=== PATIENT | male | born 1960 | race Caucasian/White ===

== ENCOUNTER → 2021-07-30 | Day surgery (SDC) | payer OTHER ==
[~2021-07-30] VITALS: Ht 182.9 cm; Wt 104.3 kg
[~2021-07-30] MED LIST: ASPIRIN EC81 MG PO; CRESTOR10 MG PO; DAILY VALUE1 EACH PO; PRINIVIL10 MG PO
== END | disposition home or self-care (01) ==
LOC: FAS 10:36
DX: M75.01 Adhesive capsulitis of right shoulder (principal)
CPT/HCPCS: 97162; 97530-GP; J0735; J1040; J1100; J2250; J2704; J2795; J7120